=== PATIENT | male | born 1970 | race Caucasian/White ===

== ENCOUNTER 2025-04-18 09:50 | Observation (INO) ==
[2025-04-18] MEDS: ASPIRIN CHEW 324 MG PO STA (10:16)
[2025-04-18] MEDS: SODIUM CHLORIDE 0.9% 1,000 ML IV STA (10:20)
[2025-04-18] MEDS: OPTIRAY 320 125ml IV ONE (10:35)
[2025-04-18 10:39] LABS: Hematocrit (blood only) 45.4 % (42.0-52.0); Hemoglobin 15.6 g/dl (14.0-18.0); Immature Granulocytes # (auto) 0.01 K/uL (0.01-0.20); Immature Granulocytes % (auto) 0.2 %; Mean Corpuscular Hemoglobin 29.5 pg (25.0-34.0); Mean Corpuscular Volume 85.8 fL (80.0-100.0); Platelet Count 263 K/uL (130-400); RDW Standard Deviation 40.7 fL (36.4-46.3); Red Blood Count 5.29 M/uL (4.70-6.10); White Blood Count 6.24 K/ul (4.8-10.8)
--- NOTE | 2025-04-18 10:40 | XRay Report ---
HISTORY: Chest pain. Tachycardia. TECHNIQUE: Portable AP radiograph of the chest. COMPARISON: None. FINDINGS: main line station engineer leads overlie the chest. No focal lung consolidation. No pneumothorax or pleural effusion. Normal heart size. Left-sided aortic arch. Midline trachea. No acute osseous abnormality. Included upper abdomen is unremarkable. IMPRESSION: No acute cardiopulmonary findings. Electronically signed by Corey Hart 04-18-2025 10:40 AM
--- NOTE | 2025-04-18 10:48 | CT Scan Report ---
HISTORY: Chest pain. TECHNIQUE: CT angiography of the chest was performed IV contrast. Coronal and sagittal 3D MIP reconstructions are provided. COMPARISON: None. FINDINGS: Lungs: The lungs are clear. No pneumothorax or pleural effusion. The central tracheobronchial tree is patent. Heart/Mediastinum: Normal heart size. No pericardial effusion. Coronary artery atherosclerotic calcifications are present. No suspicious mediastinal or hilar lymph nodes. Thoracic esophagus is unremarkable. Partially calcified nodule along the inferior left thyroid lobe measuring 2.2 cm in diameter requires further evaluation with thyroid ultrasound. Vasculature: No evidence of thoracic aortic aneurysm or acute aortic process. Main pulmonary artery is normal in caliber. No evidence of acute pulmonary embolism. Soft Tissues: Unremarkable. Upper Abdomen: Unremarkable. Bones: No acute osseous abnormality.Benign-appearing vertebral body hemangiomas are noted at multiple levels. IMPRESSION: 1. No evidence of acute pulmonary embolism or acute aortic process. 2. No acute cardiopulmonary findings. 3. 2.2 cm nodule extending inferiorly from the left thyroid lobe. Further evaluation is recommended with nonemergent thyroid ultrasound. ACT 112: Positive. There are findings on this exam that require communication between the performing entity and the patient following Patient Test Result Information Act ([place] ACT 112) guidelines. Electronically signed by Corey Hart 04-18-2025 10:47 AM
[2025-04-18 10:56] LABS: Alanine Aminotransferase 22.0 U/L (7-52); Albumin Globulin Ratio 1.4 (0.9-2); Albumin Level 4.2 gm/dl (3.4-5.0); Alkaline Phosphatase 60.0 U/L (34-104); Anion Gap 8.0 (3-11); Bilirubin,Total 0.7 mg/dl (0.2-1.0); Blood Urea Nitrogen 11.0 mg/dl (6-23); Calcium 9.4 mg/dl (8.6-10.3); Carbon Dioxide 27.0 mmol/L (21-32); Chloride 103.0 mmol/L (98-107); Creatinine Clr Calc Pharmacy 97.2 ml/min; Globulin 3.1 gm/dl (2.5-4.0); Glucose 123.0 mg/dl (70-99(Fasting)); Lipase 16.0 U/L (11-82); Magnesium 1.8 mg/dl (1.7-2.4); Potassium 3.9 mmol/L (3.5-5.1); Sodium 138.0 mmol/L (136-145); Total Protein 7.3 gm/dl (6.0-8.3)
--- NOTE | 2025-04-18 11:02 | Emergency Department Note ---
History of Present Illness General Chief Complaint: Arrhythmia/Palpitations Stated Complaint: HEART PALPITATIONS, DIZZY, CLAMMY Time Seen by Provider: 04/18/25 10:00 History of Present Illness Provider Complaint: + rapid heart beat and + palpitations Onset (ago): 1 day(s) Duration: + Constant and + Worsening Maximum Pain Intensity: 0 Current Pain Intensity: 0 Context: + occurred during rest Arrhythmia history: no atrial fibrillation or no on anti-coagulants Associated symptoms: + shortness of breath and + near-syncope; no chest pain, no syncope, no nausea, no vomiting or no diaphoresis HPI narrative: Patient binge drinks alcohol regularly on the weekends while watching football. Patient states he traveled up from [place] to watch the football game yesterday at [facility] and was drinking excessively. Home Medications Medication Instructions Recorded Confirmed Type rosuvastatin 5 mg tablet 5 mg PO DAILY 04/18/25 04/18/25 History tretinoin 0.025 % topical cream 1 applic topical UD 04/18/25 04/18/25 History Past Med/Surg History Problem List (Updated 04/18/25 @ 11:51 by Walter Velez MD) Atrial fibrillation with rapid ventricular response (Acute) Medical History (Updated 04/18/25 @ 11:51 by Walter Velez MD) No pertinent family history HLD (hyperlipidemia) Surgical History (Updated 04/18/25 @ 10:59 by Walter Velez MD) No pertinent past surgical history Social History Smoking Status: Never smoker Preferred Language: Maltese Feels Safe at Home: Yes Physical Exam 2 Vital Signs: Vital Signs - 24 hr 04/18/25 09:55 04/18/25 10:21 04/18/25 10:21 Temperature 36.9 C Temperature Source Temporal Artery Sc an Pulse Rate 120 H 93 H 105 H Pulse Rate from Sp O2 Sensor 101 H Respiratory Rate 18 12 Respiratory Effort / Characteristics Non-Labored Sponta neous Respiratory Depth Normal Respiratory Patter n Regular Blood Pressure 121/77 Blood Pressure Radha n 91 Pulse Oximetry 99 98 Oxygen Delivery Me thod Room Air Sepsis Recent Feve r Within 48 Hours No Sepsis New/Unexpla ined Change in Men ananda Status N/A Sepsis Action Take n by Nursing No Action Required 04/18/25 10:24 04/18/25 10:24 04/18/25 10:27 Temperature Temperature Source Pulse Rate 157 H Pulse Rate from Sp O2 Sensor Respiratory Rate 22 Respiratory Effort / Characteristics Respiratory Depth Respiratory Patter n Blood Pressure Blood Pressure Radha n Pulse Oximetry 97 97 Oxygen Delivery Me thod Room Air Room Air Sepsis Recent Feve r Within 48 Hours Sepsis New/Unexpla ined Change in Men ananda Status Sepsis Action Take n by Nursing 04/18/25 10:41 Temperature Temperature Source Pulse Rate Pulse Rate from Sp O2 Sensor Respiratory Rate Respiratory Effort / Characteristics Respiratory Depth Respiratory Patter n Blood Pressure 168/95 H Blood Pressure Radha n 138 Pulse Oximetry Oxygen Delivery Me thod Sepsis Recent Feve r Within 48 Hours Sepsis New/Unexpla ined Change in Men ananda Status Sepsis Action Take n by Nursing Physical Exam: Physical Exam GENERAL: oriented to person, place, and time. appears well-developed and well- nourished. HENT: Exam performed. - Head: Normocephalic and atraumatic. EYES: Conjunctivae and EOM are normal. Right eye exhibits no discharge. Left eye exhibits no discharge. No scleral icterus. NECK: Normal range of motion. Neck supple. No JVD present. CV: Tachycardic rate, irregular rhythm, normal heart sounds and intact distal pulses. There is no peripheral edema. Palpable radial pulses bue. PULM/CHEST: Effort normal and breath sounds normal. No respiratory distress. No stridor. no wheezes. no rales. ABD: The abdomen is soft. There is no tenderness. NEURO: Motor and sensation grossly intact. SKIN: Skin is warm and dry. He is not diaphoretic. PSYCH: normal mood and affect. Behavior is normal. Judgment and thought content normal. Course Course 1000: The patient was evaluated in room B7. A complete history and physical exam was performed Cardiac monitoring: An order was placed for continuous cardiac monitoring. The monitor shows a rate of 140-170 with atrial fibrilation rhythm interpreted by me Large-bore IV access was obtained. Patient was given Cardizem 20 mg IV bolus which improved the patient's ventricular rate. Patient be started on Cardizem drip. 1110: Vital signs stable on Cardizem drip. Labs and imaging are unremarkable. Patient [id number] score is 0. Aspirin given to the patient. Patient will be admitted to the [facility] team. YRN?DS?-VASc Score for Atrial Fibrillation Stroke Risk from [employer] on 04/18/2025 All calculations should be rechecked by clinician prior to use RESULT SUMMARY: 0 points Stroke risk was 0.2% per year in >90,000 patients (the [place] Atrial Fibrillation Cohort Study) and 0.3% risk of stroke/TIA/systemic embolism. INPUTS: Age > 0 = <65 Sex > 0 = Male CHF history > 0 = No Hypertension history > 0 = No Stroke/TIA/thromboembolism history > 0 = No Vascular disease history (prior CO, peripheral artery disease, or aortic plaque) > 0 = No Diabetes history > 0 = No Administered Medications Diltiazem HCl 125 mg/ Dextrose 125 mls @ 5 mls/hr IV .Q24H [facility]; Protocol Stop: 05/18/25 10:14 Last Admin: 04/18/25 10:41 Dose: 5 mg/hr, 5 mls/hr Documented By: SUZAN Co-signed By: james Discontinued Medications Aspirin (Aspirin Chew 324 Mg) 324 mg PO NOW STA Stop: 04/18/25 10:11 Last Admin: 04/18/25 10:16 Dose: 324 mg Documented By: SUZAN Diltiazem HCl (Diltiazem Hcl 5 Mg/Ml 5 Ml Vial) Confirm Administered Dose 25 mg IV .STK-MED ONE Stop: 04/18/25 10:10 Last Admin: 04/18/25 10:42 Dose: Not Given Documented By: SUZAN Diltiazem HCl (Diltiazem Hcl 5 Mg/Ml 5 Ml Vial) 20 mg IV NOW STA Stop: 04/18/25 10:11 Last Admin: 04/18/25 10:10 Dose: 20 mg Documented By: SUZAN Co-signed By: james Sodium Chloride (Nss) 1,000 mls @ 999 mls/hr IV .Q1H1M STA Stop: 04/18/25 11:10 Last Infusion: 04/18/25 11:35 Dose: Infused Documented By: Admin: 04/18/25 10:20 Dose: 999 mls/hr Documented By: SUZAN Ioversol (Optiray 320 125ml) 119 ml IV ONCE ONE Stop: 04/18/25 10:36 Last Admin: 04/18/25 10:35 Dose: 119 ml Documented By: YANNI Medical Decision Making Laboratory Data Attestation: I reviewed the patient's lab results. 04/18/25 10:16 04/18/25 10:16 Lab Results 04/18/25 04/18/25 04/18/25 Range/Units 10:16 10:20 11:13 WBC 6.24 (4.8-10.8) K/ul RBC 5.29 (4.70-6.10) M/uL Hgb 15.6 (14.0-18.0) g/dl POC Hgb 16.3 (14.0-18.0) g/dl Hct 45.4 (42.0-52.0) % POC Hct 48 (42-52) % MCV 85.8 (80.0-100.0) fL MCH 29.5 (25.0-34.0) pg MCHC 34.4 (32.0-36.0) g/dL RDW Std Deviation 40.7 (36.4-46.3) fL RDW Coeff of Albert 13.1 (11.5-14.5) % Plt Count 263 (130-400) K/uL MPV 10.3 (9.4-12.4) fL Immature Gran % (Auto) 0.2 % Neut % (Auto) 66.2 % Lymph % (Auto) 24.8 % Treg[place] % (Auto) 8.0 % Eos % (Auto) 0.5 % Baso % (Auto) 0.3 % Neut # (Auto) 4.13 (1.40-6.50) K/uL Lymph # (Auto) 1.55 (1.20-3.40) K/uL Trego # (Auto) 0.50 (0.11-0.59) K/uL Eos # (Auto) 0.03 (0.00-0.50) K/uL Baso # (Auto) 0.02 (0.00-0.20) K/uL Immature Gran # (Auto) 0.01 (0.01-0.20) K/uL PT 10.4 (9.0-12.0) Seconds INR 1.0 (0.9-1.1) APTT 26 (21-31) Seconds PTT Ratio 1.0 POC Sodium 139 (135-144) mmol/L Sodium 138 (136-145) mmol/L POC Potassium 3.9 (3.3-5.0) mmol/L Potassium 3.9 (3.5-5.1) mmol/L POC Chloride 102 (101-112) mmol/L Chloride 103 (98-107) mmol/L Carbon Dioxide 27 (21-32) mmol/L POC Total CO2 23 L (24-31) mmol/L Anion Gap 8 (3-11) POC Anion Gap 18.0 (16-25) mmol/L POC BUN 10 (7-18) mg/dl BUN 11 (6-23) mg/dl Creatinine 1.01 (0.6-1.4) mg/dl POC Creatinine 1.0 (0.6-1.3) mg/dl Est Cr Clr Drug Dosing 97.2 ml/min eGFR 88.38 BUN/Creatinine Ratio 10.9 (10-20) Glucose 123 H (70-99(Fasting)) mg/dl POC Glucose (other) 123 H (70-99) mg/dl Estimat Average Glucose 111 mg/dl Hemoglobin A1c 5.5 (4.5-5.6) % Calcium 9.4 (8.6-10.3) mg/dl POC Ioniz Calcium Jareth 1.15 (1.12-1.32) mmol/l Magnesium 1.8 (1.7-2.4) mg/dl Total Bilirubin 0.7 (0.2-1.0) mg/dl AST 19 (13-39) U/L ALT 22 (7-52) U/L Alkaline Phosphatase 60 (34-104) U/L Troponin I High Sens 5.5 (0-20) pg/ml Total Protein 7.3 (6.0-8.3) gm/dl Albumin 4.2 (3.4-5.0) gm/dl Globulin 3.1 (2.5-4.0) gm/dl Albumin/Globulin Ratio 1.4 (0.9-2) Triglycerides 110 (0-150) mg/dl Cholesterol 249 H (0-200) mg/dl LDL Cholesterol, Calc 159 mg/dl VLDL Cholesterol, Calc 22 (0-30) mg/dl HDL Cholesterol 68 mg/dl Cholesterol/HDL Ratio 3.7 (0-5) Lipase 16 (11-82) U/L Imaging Data Attestation: I personally reviewed and interpreted this imaging study as follows: My Impression: Chest x-ray negative. Airway clear. No pneumothorax. No consolidation. No cardiomegaly or cephalization.. No free air under the diaphragm. No fractures of the skeletal structures. Radiologist's Impression: Chest CTA 04/18/25 10:10 HISTORY: Chest pain. TECHNIQUE: CT angiography of the chest was performed IV contrast. Coronal and sagittal 3D MIP reconstructions are provided. COMPARISON: None. FINDINGS: Lungs: The lungs are clear. No pneumothorax or pleural effusion. The central tracheobronchial tree is patent. Heart/Mediastinum: Normal heart size. No pericardial effusion. Coronary artery atherosclerotic calcifications are present. No suspicious mediastinal or hilar lymph nodes. Thoracic esophagus is unremarkable. Partially calcified nodule along the inferior left thyroid lobe measuring 2.2 cm in diameter requires further evaluation with thyroid ultrasound. Vasculature: No evidence of thoracic aortic aneurysm or acute aortic process. Main pulmonary artery is normal in caliber. No evidence of acute pulmonary embolism. Soft Tissues: Unremarkable. Upper Abdomen: Unremarkable. Bones: No acute osseous abnormality.Benign-appearing vertebral body hemangiomas are noted at multiple levels. IMPRESSION: 1. No evidence of acute pulmonary embolism or acute aortic process. 2. No acute cardiopulmonary findings. 3. 2.2 cm nodule extending inferiorly from the left thyroid lobe. Further evaluation is recommended with nonemergent thyroid ultrasound. ACT 112: Positive. There are findings on this exam that require communication between the performing entity and the patient following Patient Test Result Information Act ([place] ACT 112) guidelines. Electronically signed by Corey Hart 04-18-2025 10:47 AM Chest X-Ray 04/18/25 10:10 HISTORY: Chest pain. Tachycardia. TECHNIQUE: Portable AP radiograph of the chest. COMPARISON: None. FINDINGS: air sampling and monitoring leads overlie the chest. No focal lung consolidation. No pneumothorax or pleural effusion. Normal heart size. Left-sided aortic arch. Midline trachea. No acute osseous abnormality. Included upper abdomen is unremarkable. IMPRESSION: No acute cardiopulmonary findings. Electronically signed by Corey Hart 04-18-2025 10:40 AM ECG Data Attestation: I personally reviewed and interpreted this ECG as follows: Additional Comments: EKG #1 at 1003: Atrial fibrillation with a rate of 169. QRS [address] elevation or ST depression EKG #2 at 1014 Status post Cardizem 20 mg IV push: Atrial fibrillation with a rate of 106. QRS [address] elevation or ST depression. MDM Narrative 1000: The patient was evaluated in room B7. A complete history and physical exam was performed Cardiac monitoring: An order was placed for continuous cardiac monitoring. The monitor shows a rate of 140-170 with atrial fibrilation rhythm interpreted by me Large-bore IV access was obtained. Patient was given Cardizem 20 mg IV bolus which improved the patient's ventricular rate. Patient be started on Cardizem drip. 1110: Vital signs stable on Cardizem drip. Labs and imaging are unremarkable. Patient [id number] score is 0. Aspirin given to the patient. [facility]. YRN?DS?-VASc Score for Atrial Fibrillation Stroke Risk from [employer] on 04/18/2025 All calculations should be rechecked by clinician prior to use RESULT SUMMARY: 0 points Stroke risk was 0.2% per year in >90,000 patients (the [place] Atrial Fibrillation Cohort Study) and 0.3% risk of stroke/TIA/systemic embolism. INPUTS: Age > 0 = <65 Sex > 0 = Male CHF history > 0 = No Hypertension history > 0 = No Stroke/TIA/thromboembolism history > 0 = No Vascular disease history (prior CO, peripheral artery disease, or aortic plaque) > 0 = No Diabetes history > 0 = No Impression & Plan Atrial fibrillation with rapid ventricular response Critical Care Time Critical Care Time: Yes Total Critical Care Time: 45 I have personally spent greater than 45 minutes of critical care time in the direct management of this patient. This includes bedside care, interpretation of diagnostic studies, and testing, discussion with consultants, patient, and family members, and other required patient management activities. This 45 minutes is in excess of all separately billable procedures. Discharge Plan Visit Data Chief Complaint: Arrhythmia/Palpitations Stated Complaint: HEART PALPITATIONS, DIZZY, CLAMMY ED Provider: Walter Velez Discharge Problem: Atrial fibrillation with rapid ventricular response Patient Disposition: Admitted As Inpatient Condition: Serious Forms Stand Alone Forms: My [employer] Prescriptions Prescriptions: No Action tretinoin 0.025 % cream 1 applic TOPICAL UD rosuvastatin 5 mg tablet 5 mg PO DAILY Referrals Referrals: PCP,NO [Primary Care Provider] -
[2025-04-18 11:07] LABS: INR 1.0 (0.9-1.1); Partial Thromboplastin Time 26 Seconds (21-31); Prothrombin Time 10.4 Seconds (9.0-12.0)
--- NOTE | 2025-04-18 11:34 | History & Physical Report ---
Date of Service April 18, 2025 Assessment & Plan (1) Atrial fibrillation with rapid ventricular response: (2) HLD (hyperlipidemia): Plan 54 yo male with HLD presenting for tachycardia 2/2 new onset atrial fibrillation with RVR. #New Onset Atrial Fibrillation with RVR -likely induced by alcohol use last night and possible dehydration -[id number] score of 0 per patient endorsed history, making blood thinners not indicated at this time -palpitations only symptom, hemodynamically stable Plan: -continue cardizem drip -start metoprolol tartrate 25mg tid given rates -check A1c, lipids, TSH, BNP for metabolic workup -check echo -if does not convert in 48-72 hrs may need cardioversion as outpatient -will need cardiology referral outpatient -if rates controlled off drip may be stable for discharge home tonight vs. tomorrow morning #HLD -start atorvastatin 20mg #Thyroid Nodule -2.2cm on left thyroid -will need thyroid ultrasound outpatient I spent a total of 80 minutes in direct patient care, including [id number] time with the patient and/or family, reviewing medical records, ordering and reviewing diagnostic tests, and coordinating care with other healthcare providers. This time includes: history taking, physical examination, medical decision making, counseling, ECG interpretation, imaging interpretation, lab interpretation, orders, and education, excluding time spent in the performance of separately billed services. History of Present Illness Chief Complaint: -tachycardia Primary Care Provider: NO PCP 54 yo male with HLD presenting for tachycardia. No prior admissions at [facility]. In the ED, noted to be in afib with RVR, started on a Cardizem drip, admitted to medicine for further workup. Patient seen and examined at bedside. Friend present as well. Patient came into town for football game, drank alcohol last night, went to bed and felt fine. This morning, woke up with a feeling of fast heart rate, and so he came to the hospital. Denies chest pain, SOB, nausea, vomiting, other associated symptoms. Denies other drug use. Does endorse possible dehydration. No alcohol use, no tobacco use, no drug use, full code. Home Medications Medication Instructions Recorded Confirmed Type rosuvastatin 5 mg tablet 5 mg PO DAILY 04/18/25 04/18/25 History tretinoin 0.025 % topical cream 1 applic topical UD 04/18/25 04/18/25 History Past Med/Surg History Problem List (Updated 04/18/25 @ 11:33 by Babatunde Thomas MD) Atrial fibrillation with rapid ventricular response Medical History (Updated 04/18/25 @ 11:33 by Babatunde Thomas MD) No pertinent family history HLD (hyperlipidemia) Surgical History (Updated 04/18/25 @ 10:59 by Walter Velez MD) No pertinent past surgical history Social History Smoking Status: Never smoker Preferred Language: Uzbek Feels Safe at Home: Yes Review of Systems Review of Systems: -negative unless listed above Physical Exam Physical Exam: Gen: A&O 3 NAD HEENT: NCAT, EOMI, not icteric. External ears normal. No rhinorrhea. Moist mucous membranes. Neck: Supple, full range of motion, no observable masses, No meningeal sign. Lungs: No Respiratory distress. CV: irregular rhythm and rate, tachycardic Abdomen: Soft, nondistended, No rebound tenderness. MSK: No joint swelling, no redness. Skin: No rashes, petechiae, lesions. Normal color per patient. Neuro: Normal Gait, Grossly intact. Psych: Appropriate for situation. Results & Data Results & Data Vital Signs (Past 12 Hours) Vital Signs Temp Pulse Resp BP Pulse Ox O2 Del Method 04/18/25 10:41 168/95 H 04/18/25 10:27 157 H 22 04/18/25 10:24 97 Room Air 04/18/25 10:24 97 Room Air 04/18/25 10:21 105 H 12 98 04/18/25 10:21 93 H 04/18/25 09:55 36.9 C 120 H 18 121/77 99 Room Air Laboratory Results -personally reviewed, hypertensive, no leukocytosis, mildly elevated glucose, Mg 1.8 and replenished, K of 3.9 and replenished Medications Administered Diltiazem HCl 125 mg/ Dextrose 125 mls @ 5 mls/hr IV .Q24H [facility]; Protocol Stop: 05/18/25 10:14 Last Admin: 04/18/25 10:41 Dose: 5 mg/hr, 5 mls/hr Documented By: SUZAN Co-signed By: cad Code Status & VTE Plan Code Status -full code
[2025-04-18 11:39] LABS: Cholesterol 249.0 mg/dl (0-200); HDL Cholesterol 68.0 mg/dl; Triglycerides 110.0 mg/dl (0-150)
[2025-04-18 11:42] LABS: Hemoglobin A1C 5.5 % (4.5-5.6)
[2025-04-18] MEDS ORDERED: SODIUM CHLORIDE 0.9% 500 ML IV SCH (12:00)
[2025-04-18] MEDS: MAGNESIUM SULFATE / D5W 1 GM/100 ML BAG IV SCH (12:16)
[2025-04-18] MEDS: STAT IV Infusion **Titration per Protocol STA (12:24)
[2025-04-18] MEDS: METOPROLOL TARTRATE 25 MG TAB PO SCH (13:17)
[2025-04-18] MEDS: POTASSIUM CHLORIDE CRTAB 20 MEQ TABCR PO STA (13:18)
[2025-04-18] MEDS ORDERED: ONDANSETRON INJ 2 MG/ML 2 ML VIAL IV PRN (14:17)
[2025-04-18] MEDS ORDERED: ACETAMINOPHEN 325 MG TAB PO PRN (14:17)
[2025-04-18] MEDS ORDERED: POLYETHYLENE (MIRALAX) 17 GM PACK PO PRN (14:17)
--- NOTE | 2025-04-18 15:54 | XCELERA ---
[id number]
--- NOTE | 2025-04-18 16:18 | Discharge Summary ---
Discharge Summary Date of Service April 18, 2025 Principal Dx & Hospital Course #1 = Principal Diagnosis (1) Atrial fibrillation with rapid ventricular response: (2) HLD (hyperlipidemia): Plan 54 yo male with HLD presenting for tachycardia 2/2 new onset atrial fibrillation with RVR. #New Onset Atrial Fibrillation with RVR -likely induced by alcohol use last night and possible dehydration -[id number] score of 0 per patient endorsed history, making blood thinners not indicated at this time -palpitations only symptom, hemodynamically stable Plan: -continue cardizem drip -start metoprolol tartrate 25mg tid given rates -check A1c, lipids, TSH, BNP for metabolic workup -check echo -if does not convert in 48-72 hrs may need cardioversion as outpatient -will need cardiology referral outpatient -if rates controlled off drip may be stable for discharge home tonight vs. tomorrow morning #HLD -start atorvastatin 20mg #Thyroid Nodule -2.2cm on left thyroid -will need thyroid ultrasound outpatient Notes For Next Care Provider 54 yo male with HLD presenting for tachycardia. Found to have new onset atrial fibrillation with RVR 2/2 dehydration and alcohol use, started on dilt drip, admitted to medicine. On medicine, started on PO metoprolol, patient converted to sinus rhythm. [id number] score of 0 per patient report of conditions. On 04/18/2025 patient medically stable for discharge home. To do: [ ] f/u with cardiology -Incidental Findings: left thyroid nodule (needs follow up with PCP) Medication Changes From Visit -metoprolol Admission HPI Per Admitting Provider 54 yo male with HLD presenting for tachycardia. No prior admissions at [facility]. In the ED, noted to be in afib with RVR, started on a Cardizem drip, admitted to medicine for further workup. Patient seen and examined at bedside. Friend present as well. Patient came into town for football game, drank alcohol last night, went to bed and felt fine. This morning, woke up with a feeling of fast heart rate, and so he came to the hospital. Denies chest pain, SOB, nausea, vomiting, other associated symptoms. Denies other drug use. Does endorse possible dehydration. No alcohol use, no tobacco use, no drug use, full code. Discharge Exam Gen: A&O 3 NAD HEENT: NCAT, EOMI, not icteric. External ears normal. No rhinorrhea. Moist mucous membranes. Neck: Supple, full range of motion, no observable masses, No meningeal sign. Lungs: No Respiratory distress. CV: irregular rhythm and rate, tachycardic Abdomen: Soft, nondistended, No rebound tenderness. MSK: No joint swelling, no redness. Skin: No rashes, petechiae, lesions. Normal color per patient. Neuro: Normal Gait, Grossly intact. Psych: Appropriate for situation. Updated Medication List Medication Instructions Recorded Confirmed Type atorvastatin 20 mg tablet 20 mg PO QAM #30 tabs 04/18/25 Rx metoprolol tartrate 25 mg tablet 25 mg PO BID #60 tabs 04/18/25 Rx tretinoin 0.025 % topical cream 1 applic topical UD 04/18/25 04/18/25 History Hospital Stay Data Consultations 04/18/25 11:10 ED Decision to Admit Stat Diagnostic Imagining Performed 04/18/25 10:10 CT angio chest PE protocol Stat Pending Results Patient Have Any Pending Studies at Discharge: No Discharge Instructions Given to Patient (Per Discharging Provider) Diagnosis: new onset atrial fibrillation with RVR Incidental Findings: left thyroid nodule (needs follow up with PCP) Follow Ups: PCP, cardiology 1. Follow up with PCP, cardiology. Total Time Total Time Spent Total Time Spent (In Minutes): I spent a total of 35 minutes in direct patient care, including [id number] time with the patient and/or family, reviewing medical records, ordering and reviewing diagnostic tests, and coordinating care with other healthcare providers. This time includes: history taking, physical examination, medical decision making, counseling, ECG interpretation, imaging interpretation, lab interpretation, orders, and education, excluding time spent in the performance of separately billed services.
--- NOTE | 2025-04-18 19:29 | Electrocardiogram Report ---
Test Reason : Blood Pressure : */* mmHG Vent. Rate : 169 BPM Atrial Rate : * BPM P-R Int : * ms QRS Dur : 86 ms QT Int : 270 ms P-R-T Axes : * 92 -23 degrees QTcB Int : 452 ms Atrial fibrillation with rapid ventricular response Rightward axis Nonspecific ST abnormality Nonspecific T wave abnormality Abnormal ECG No previous ECGs available Confirmed by Tima Stovall ([id number]) on 04/18/2025 7:28:50 PM Referred By: REFERRED SELF Confirmed By: Tima Stovall
[2025-04-19] MEDS ORDERED: ATORVASTATIN 20 MG TAB PO SCH (09:00)
--- NOTE | 2025-04-19 15:22 | Electrocardiogram Report ---
Test Reason : Blood Pressure : */* mmHG Vent. Rate : 106 BPM Atrial Rate : * BPM P-R Int : * ms QRS Dur : 92 ms QT Int : 310 ms P-R-T Axes : * 79 -15 degrees QTcB Int : 411 ms Atrial fibrillation with rapid ventricular response Abnormal QRS-T angle, consider primary T wave abnormality Abnormal ECG When compared with ECG of 18-Apr-2025 10:14, (unconfirmed) No significant change Confirmed by Diego Fenton ([id number]) on 04/19/2025 3:22:21 PM Referred By: REFERRED SELF Confirmed By: Diego Fenton
--- NOTE | 2025-04-19 15:24 | Electrocardiogram Report ---
Test Reason : Blood Pressure : */* mmHG Vent. Rate : 72 BPM Atrial Rate : 72 BPM P-R Int : 146 ms QRS Dur : 92 ms QT Int : 372 ms P-R-T Axes : 70 73 62 degrees QTcB Int : 407 ms Sinus rhythm with Premature atrial complexes Otherwise normal ECG When compared with ECG of 18-Apr-2025 10:14, (unconfirmed) Sinus rhythm has replaced Atrial fibrillation Non-specific change in ST segment in Inferior leads T wave inversion no longer evident in Inferior leads Confirmed by Diego Fenton ([id number]) on 04/19/2025 3:23:41 PM Referred By: REFERRED SELF Confirmed By: Diego Fenton
== END 2025-04-18 15:52 | disposition home or self-care (01) ==
LOC: ED 09:50 → INTOOBSV 11:15 → 4W 11:15